=== PATIENT | male | born 1930 | race Caucasian/White ===

== ENCOUNTER 2016-11-16 08:56 | Emergency (ER) | payer OTHER, BC ==
[~2016-11-16] VITALS: Ht 180.3 cm; Wt 86.6 kg
[2016-11-16] MEDS ORDERED: PRAVASTATIN SOD40 MG PO (09:15)
[2016-11-16] MEDS ORDERED: LO-DOSE ASPIRIN81 M2 PO (09:15)
[2016-11-16] MEDS ORDERED: LISINOPRIL40 MG PO (09:16)
[2016-11-16] MEDS ORDERED: METFORMIN HCL500 M1 PO (09:19)
[2016-11-16] MEDS ORDERED: NORVASC10 MG PO (09:20)
[2016-11-16 09:34] LABS: POINT-OF-CARE METER ID UU13113747
[2016-11-16 09:46] LABS: ADD MIUA? NO; BILIRUBIN NEGATIVE; BLOOD NEGATIVE; COLOR YELLOW ((YELLOW)); GLUCOSE (STRIP) >=1000; KETONES NEGATIVE; LEUKOCYTES NEGATIVE; NITRITE NEGATIVE; PROTEIN (STRIP) 30; SPECIFIC GRAVITY 1.021 (1.000-1.030); UCUL ADDED? NO; UROBILINOGEN 0.2 MG/DL (0.2-1.0)
[2016-11-16 09:50] LABS: BASOPHIL COUNT 0.1 K/uL (0-0.1); EOSINOPHIL (%) 3.1 % (0-5); EOSINOPHIL COUNT 0.3 K/uL (0-0.3); HEMATOCRIT 37.5 % (38.0-50.0); IMMATURE GRANULOCYTE (%) 0.4 % (0.0-0.7); IMMATURE GRANULOCYTE COUNT 0.4 K/uL; MCH 31.5 PG (29.0-34.0); MCHC 34.4 G/DL (30.0-36.0); MCV 91.7 FL (86-99); MEAN PLAT.VOLUME 9.6 uM^3 (9.0-12.4); MONOCYTE COUNT 0.9 K/uL (0-0.8); NEUTROPHIL (%) 63.9 % (45-76); NEUTROPHIL COUNT 5.7 K/uL (1.8-6.4); PLATELET COUNT 260 K/uL (156-360); RBC DIS.WIDTH-CV 12.4 % (11.8-14.6); RBC DIS.WIDTH-SD 40.5 % (39-53); RED BLOOD COUNT 4.09 M/uL (4.00-5.50); WHITE BLOOD COUNT 8.9 K/uL (4.1-10.2)
[2016-11-16 09:59] LABS: CHLORIDE 105 mEq/L (99-109); POTASSIUM 4.1 mEq/L (3.7-5.4); SODIUM 139 mEq/L (136-147)
[2016-11-16 10:01] LABS: GLUCOSE 315 mg/dL (70-99)
[2016-11-16 10:03] LABS: ANION GAP 10 MEQ/L (2-14); TOTAL BILIRUBIN 0.8 mg/dL (0.0-1.0)
[2016-11-16 10:05] LABS: ALKALINE PHOSPHATASE 79 IU/L (3-129); GFR ESTIMATE (CALCULATED) > 59 mL/min/
[2016-11-16 10:06] LABS: UREA NITROGEN (BUN) 26 mg/dL (9-23)
[2016-11-16 10:08] LABS: LIPASE 35 U/L (1.0-51.0)
[2016-11-16 10:16] LABS: CARBOXY HGB 2.1 % (0-5); METHEMOGLOBIN 0.8 % (0-1.5); MIXED VENOUS O2 SATURATION 78.6 % (65-75)
[2016-11-16 11:20] LABS: POINT-OF-CARE METER ID UU13113747
[2016-11-16] MEDS ORDERED: GLUCOPHAGE500 MG PO (11:57)
[2016-11-16 12:22] VITALS: BP 140/78
== END 2016-11-16 13:02 | disposition home or self-care (01) ==
LOC: EME 08:56
PROVIDERS: Emergency Medicine
DX: E11.65 Type 2 diabetes mellitus with hyperglycemia (principal); E78.5 Hyperlipidemia, unspecified; I10 Essential (primary) hypertension; Z96.653 Presence of artificial knee joint, bilateral
CPT/HCPCS: 80053; 81003; 82810; 82948; 83690; 85025; 99281; 99285; J7040